=== PATIENT | female | born 1940 | race Caucasian/White ===

== ENCOUNTER 2023-09-29 13:14 | Emergency (ER) | payer MEDICARE, MEDICAID ==
[~2023-09-29] VITALS: Ht 162.6 cm; Wt 100.0 kg
[2023-09-29 13:49] VITALS: BP 135/81; PULSE 87; RESP 18; O2SAT 97
[2023-09-29] MEDS ORDERED: APIX2.5T PO (15:59)
[2023-09-29] MEDS ORDERED: DIVA250T4 PO (15:59)
[2023-09-29] MEDS ORDERED: SYN0.088T PO (15:59)
[2023-09-29] MEDS ORDERED: ALBU8HFA INH (15:59)
[2023-09-29] MEDS ORDERED: TORS10TA17 PO (15:59)
[2023-09-29 17:57] VITALS: TEMP 97.5
== END 2023-09-29 17:58 | disposition home or self-care (01) ==
LOC: ER 13:14
DX: E03.9 Hypothyroidism, unspecified (principal); G40.909 Epilepsy, unspecified, not intractable, without status epilepticus; Z76.0 Encounter for issue of repeat prescription; Z88.0 Allergy status to penicillin; Z88.2 Allergy status to sulfonamides
CPT/HCPCS: 99281